=== PATIENT | female | born 1990 | race Caucasian/White ===

== ENCOUNTER → 2018-01-24 00:22 | Observation (INO) ==
[2018-01-23 21:37] LABS: Amphetamine Screen,Urine Negative ng/mL (Cutoff=1000); Barbiturate Screen,Urine Negative ng/mL (Cutoff=200); Benzodiazepines Screen,Urine Negative ng/mL (Cutoff=200); Cannabinoid Screen,Urine Negative ng/mL (Cutoff = 50); Cocaine Screen,Urine Negative ng/mL (Cutoff= 300); Opiate Screen,Urine Negative ng/mL (Cutoff=300); Phencyclidine Screen,Urine Negative ng/mL (Cutoff=25)
--- NOTE | 2018-01-23 22:39 | OB/GYN Progress Note ---
Date of Encounter: 01/24/18 Time of Encounter: 22:34 - Assessment and Plan (1) 35 weeks gestation of Current Visit: Yes Status: Acute Follow up with OB as scheduled Discharge home (2) Struck by dog, initial encounter Current Visit: Yes Status: Acute K-B stain - 0 (3) uterine contractions in third trimester, antepartum Current Visit: Yes Status: Acute Monitor x 2 hours for cervical change - no changes PTL precautions given Subjective - Subjective Principal diagnosis: Dog jumped on abdomen Interval history: Ms. Walker is a 27 year old at 35 weeks 2 days gestation who presents s /p dog jumping on her abdomen this evening. She reports her dog weighs 7-10 lbs. She denies ctx, lof, vb. She endorses good fm. 22:38 - update - pt reports contractions starting. Rates them 3/10. Antepartum ROS: new complaints, movement normal, contractions, no loss of fluid, no vaginal bleeding Objective - Vital Signs Vital Signs: Intake and Output 01/23/18 01/23/18 01/23/18 07:59 15:59 23:59 Other: Weight 75.568 kg Patient Weight 01/23/18 23:59 Weight 75.568 kg - Exam FHR: category 1 FHR comments: Baseline 130 Moderate variability Accelerations present 15x15 No decelerations FHR category I [place]- no activity initially and then contractions q 4-5 minutes and palpate moderate
== END | disposition home or self-care (01) ==
LOC: 1NENULAB
PROVIDERS: ADMIT Advanced Practice Midwife; ATTEND Advanced Practice Midwife

== ENCOUNTER 2018-02-20 05:56 | Inpatient (IN) ==
[2018-02-20] MEDS ORDERED: Ondansetron 4 MG/2 ML VIAL IVP PRN (06:11)
[2018-02-20] MEDS ORDERED: Naloxone 0.4 MG/ML INJ IVP PRN (06:11)
[2018-02-20] MEDS ORDERED: *HR* Nalbuphine 10 MG/ML AMPUL IVP PRN (06:11)
[2018-02-20] MEDS ORDERED: Famotidine 20 MG/2 ML VIAL IVP PRN (06:11)
[2018-02-20] MEDS ORDERED: Metoclopramide 10 MG/2 ML VIAL IVP PRN (06:11)
[2018-02-20] MEDS ORDERED: Ringers Solution, Lactated 1,000 ML ONE (06:24)
[2018-02-20 06:32] LABS: Basophils % 0.6 %; Eosinophils # 0.1 K/mcL (0.0-0.6); Eosinophils % 1.1 %; Hematocrit 34.5 % (35.3-44.9); Immature Granulocytes % 1.1 % (0-4); Lymphocytes # 1.3 K/mcL (0.6-4.6); Lymphocytes % 18.2 %; Mean Corpuscular HGB Conc 34.8 g/dL (31.6-35.5); Mean Corpuscular Hemoglobin 32.6 pg (28.0-33.3); Mean Corpuscular Volume 93.8 fL (83.0-100.0); Mean Platelet Volume 10.2 fL (9.4-12.4); Monocytes # 0.6 K/mcL (0.0-1.3); Monocytes % 8.3 %; Neutrophils # 5.1 K/mcL (1.6-8.9); Platelet Count 178 K/mcL (140-400); Red Blood Count 3.68 M/mcL (3.82-4.97); Red Cell Distribution Width 13.3 % (11.5-14.5); Segmented Neutrophils % 70.7 %
[2018-02-20] MEDS: Ringers Solution, Lactated 1,000 ML IVC SCH ×2 (06:32→13:55)
[2018-02-20 06:51] LABS: Amphetamine Screen,Urine Negative ng/mL (Cutoff=1000); Barbiturate Screen,Urine Negative ng/mL (Cutoff=200); Benzodiazepines Screen,Urine Negative ng/mL (Cutoff=200); Cannabinoid Screen,Urine Negative ng/mL (Cutoff = 50); Cocaine Screen,Urine Negative ng/mL (Cutoff= 300); Opiate Screen,Urine Negative ng/mL (Cutoff=300); Phencyclidine Screen,Urine Negative ng/mL (Cutoff=25)
[2018-02-20] MEDS ORDERED: miSOPROStol 25 MCG TABLET PO PRN (07:49)
--- NOTE | 2018-02-20 07:56 | OB/GYN History & Physical ---
Date of Encounter: 02/20/18 Time of Encounter: 07:50 Assessment and Plan (1) and not yet delivered in third trimester Current visit: Yes Status: Acute (2) 39 weeks gestation of Current visit: Yes Status: Acute (3) Gestational diabetes Current visit: Yes Status: Acute Qualifiers: Gestational diabetes mellitus control: diet-controlled Trimester: third trimester Qualified Code(s): O24.410 - Gestational diabetes mellitus in , diet controlled (4) Elective induction of labor planned Current visit: Yes Status: Acute Patient be induced with Cytotec 50 g by mouth once patient's having regular contractions she will be artificially ruptured with an epidural plan is to anticipate vaginal delivery History of Present Illness HPI: Ms. Walker is a 27 year old female 2 para 1 at 39-2/7 weeks who presented for induction of labor secondary term with favorable cervix. Patient was a gestational diabetic A1 well-controlled patient's NSTs have been reactive with no issues patient's cervix was 3-4 cm in the office and it was recommended when she got into the 39 week range that she be delivered she been having occasional contractions but nothing that she is concerned about no leaking of fluid having good movement patient is O-, GBS negative, rubella positive, Varicella positive. Past Med Surg Social Fam HX - Past Medical History Source: patient, old records reviewed Medical history: other Additional medical history: Gestational diabetes diet controlled Psychiatric history: no psych history - Past Surgical History Surgical History: no surgical history - Social History Smoking Status: Never smoker Smokeless Tobacco Status: No Alcohol use: none Drug use: none Occupational status: employed Current living situation: Home - Independent Activity Level: Independent ambulation Recent Out of Country Travel Within the Last 8 Weeks: No Exposure or Possible Exposure to Illness During Travel: No - Family History Mother Living Status: Still Living Hx Family Cardiac Disorders: Yes (hypertension) Hx Family Respiratory Disorders: No Hx Family Cancer: No Hx Family GI Disorders: No Hx Family Genitourinary Disorders: No Hx Family Endocrine Disorder: No Hx Family Musculoskeletal Disorders: No Hx Family Neuromuscular Disorders: No Hx Family Neurologic Disorders: No Hx Family HEENT Disorders: No Hx Family Autoimmune Disorders: No Hx Family Reproductive Disorders: No Hx Family Psychosocial Disorders: No Hx Family Medical Disorders: No - Additional Family History Additional family history: Family history noncontributory Obstetrical History - Pregnancies : 2 Para: 1 Term: 0 : 0 Ab's: 0 Livin Medications and Allergies Pnv No.122/Iron/Folic Acid [ Multi Tablet] 1 each PO DAILY 05/30/16 [ History] Ferrous Sulfate 1 tab PO DAILY 02/20/18 [History] 3 Allergy/AdvReac Type Severity Reaction Status Date / Time No Known Allergies Allergy Verified 02/20/18 06:20 Review of System OB All systems PM: reviewed and no additional remarkable complaints except as stated Exam - Constitutional Constitutional: well developed, well nourished, no acute distress, average body habitus - HEENT HEENT: EOMI, PERRL, Mucus Membranes Moist - Neck Neck exam: full ROM - Lungs Respiratory exam: CTAB - Cardiovascular Cardiovascular exam: RRR - Abdomen Abdomen: Present: bowel sounds normal, gravid ( heart tones 140s reactive occasional contractions seen) - Extremities Extremities exam: calf tenderness - Vagina Vagina: Present: normal moisture - Cervix Dilation: 4 Effacement: 80 Station: -1 Results Result Diagrams: 02/20/18 06:24 Abnormal lab results RBC 3.68 M/mcL (3.82-4.97) L 02/20/18 06:24 Hct 34.5 % (35.3-44.9) L 02/20/18 06:24 All other labs normal.
--- NOTE | 2018-02-20 11:19 | OB Labor Progress Note ---
Date of Encounter: 02/20/18 Time of Encounter: 11:15 Labor Progress Note - Subjective Subjective: Patient still not feeling too many contractions still having good movement - Cervix Cervix: 4/80/-1 AROM clear fluid noted - Heart Tones Heart Tones: heart tones 140s reactive - Morenci Morenci: Contractions every 2-5 minutes irregular - Plan Plan: If patient does not make any cervical change in the next 2 hours we will augment with Pitocin plan is to anticipate vaginal delivery
[2018-02-20] MEDS ORDERED: Oxytocin 20 units/ LR 1000 mL 20 UNIT/1,000 ML BAG IVC SCH ×2 (13:15→20:41)
[2018-02-20] MEDS ORDERED: *HR* Ropivacaine/PF 0.2% 20 ML VIAL EP ONE (13:17)
[2018-02-20] MEDS ORDERED: *HR* FentaNYL (PF) 100 MCG/2 ML VIAL EP ONE (13:17)
--- NOTE | 2018-02-20 13:17 | Anesthesia Evaluation PreOp ---
Date of Encounter: 02/20/18 Time of Encounter: 13:14 - Past History Planned Operation: annette Cardiac History: Denies any Significant Hx Pulmonary History: Denies Any Significant HX [employer] History: Denies Any Significant HX Other Medical History: Diabetes Type II, GERD Anesthesia History: No Prior Anesthetic Complications : Yes Test: Positive Alcohol Use: none Drug use: none Medications and Allergies Pnv No.122/Iron/Folic Acid [ Multi Tablet] 1 each PO DAILY 05/30/16 [ History] Ferrous Sulfate 1 tab PO DAILY 02/20/18 [History] 3 Allergy/AdvReac Type Severity Reaction Status Date / Time No Known Allergies Allergy Verified 02/20/18 06:20 - Meds/Allergy Pre-op Review Medications Reviewed: Yes Allergies Reviewed: Yes Beta Blockers on Current Med List: No Anesthesia Results - Labs 02/20/18 06:24 02/20/18 06:02 Anesthesia Exam 168/73 72 16 fht 119 Height: 5'3" Weight: 78 NPO (# of Hours): 4 Pain Scale: 6 Pain Scale Used: Numeric (1 - 10) - HEENT Pupil (Motor): Pupils equal Mallampati: II Teeth: Normal Oral Opening: Greater than 3 - [employer] LOC: Oriented [employer] Motor: Normal RUE, Normal LUE, Normal RLE, Normal LLE, Normal Face [employer] Sensory: Normal: RUE, LUE, RLE, LLE, Face - Cardiac Rhythm: Regular Murmur: None - Pulmonary Breath Sounds: bilateral Clear Respiratory Effort: Symmetrical Anesthesia Assess/Plan ASA Score: 2 Modified Bandar Scale for Level of Consciousness: Cooperative, oriented, and tranquil Anesthetic Plan: Regional Autologous Blood: No Monitoring Plan: Standard Monitors Recovery Plan: Other (risks discussed questions answered, consented)
[2018-02-20] MEDS ORDERED: Lidocaine -MPF 2% 5 ML VIAL ONE (13:19)
[2018-02-20] MEDS ORDERED: Epidural Premix (fent/bupiv) 110 ML EP ONE (13:45)
--- NOTE | 2018-02-20 13:54 | Anesthesia Procedures ---
Date of Encounter: 02/20/18 Time of Encounter: 13:52 Procedures: Anesthesia - Epidural/Spinal Patient ID/Chart reviewed: Yes Patient examined: Yes OB Eval: Gestational age: 39.2 OB Eval: : 2 OB Eval: Hx Para: 0 OB Eval: Dilated at (cm): 4 OB Eval: Contractions: Non-stressed pattern Consent Obtained: Yes Supplemental Oxygen: None/Room Air Site Prep: Aseptic Technique, 0.5% Chlorhexidine/Alcohol Patient position: upright Local Anesthetic: Lidocaine 1% Amount of Local Anesthetic used: 3 Touhy Needle Gauge: 18 Touhy Needle Depth (cm): 6 Catheter Depth at Skin (cm): 15 Test Dose (1.5% Lido + Epi): Volume given (mls): 3 Test Dose Result: Negative Loading Dose: Fentanyl (mcg): 100 Loading Dose: Other: ropivicaine 0.2% 10 Loading Dose Administered: Thru Touhy Needle Infusion Med: 0.125% Bupivacaine w/ 2 mcg/ml Fentanyl Infusion Rate (mls/hr): 15 (pcea 5 cc q30") Catheter Secured in Place: Tegaderm Interspace Used: L2-L3 Loss of Resistance (YESSI): Yes Blood: No CSF: No Paresthesia: No Procedure: aseptic, celestino well, effective, VSS Vitals + FHT's: 109/76 88 16 fht 123
--- NOTE | 2018-02-20 18:34 | OB/GYN Procedure Note ---
Delivery - Delivery Date: 02/20/18 Provider: Emigdio Joyce Intrapartum events: none Delivery induction: misoprostol Delivery augmentation: rupture of membranes, pitocin Delivery monitor: external FHT, external uterine Anesthesia: epidural Quantitated Blood Loss: 100 - (s) Infant A Infant Delivery Date: 02/20/18 Delivery Time: 17:37 Presentation: vertex Position: JANELLE Route of delivery: Gender: Female Viability: Viable Pounds: 6 Ounces: 4 Weight Gram: 2.84 kg at 1 minute: 8 at 5 mins: 8 Shoulder Dystocia: not encountered Specimens collected: cord blood Placenta: spontaneous Cord: nuchal cord (around the body) - Repair Episiotomy: none Laceration Description: Periurethral (bilaterally), Perineal - 2nd Degree - Complications Delivery complications: none Delivery comments: Patient is a 27-year-old 2 para 0010 at 39-2/7 weeks who presented for induction of labor secondary to term with favorable cervix. Patient was 4 cm on admission patient did receive 50 g of Cytotec by mouth once we started having contractions she was artificially ruptured for clear fluid she received an epidural soon after this then Pitocin was started patient progressed appropriately becoming complete and pushed for approximately 30 minutes delivering a viable female infant in right occiput anterior presentation at 1737. There was a nuchal cord around the body there was no meconium the was bulb suctioned on the abdomen. Apgars were 8 at 1 minute, 9 at 5 minute, infant weight was 6 lbs. 4 oz. Placenta was then delivered spontaneously with a three-vessel cord, assistant designer Dr. Joyce, anesthesia epidural, estimated blood loss 100 mL. She had bilateral periurethral lacerations repaired with 4-0 Vicryl in usual fashion and she had a second-degree perineal laceration repaired with 3-0 Monocryl in usual fashion. Cervix and vagina was visualized intact. She will be observed 2 hours before being taken to floor. - Disposition Mom disposition: stable in LDR [place] disposition: stable in LDR
[2018-02-20] MEDS ORDERED: Oxytocin 20 units/ LR 1000 mL 20 UNIT/1,000 ML BAG IVC ONE ×2 (20:01→20:41)
[2018-02-20] MEDS ORDERED: Rho Immune Globulin 1,500 UNIT SYRINGE IM PRN (20:41)
[2018-02-20] MEDS ORDERED: Measles/Mumps/Rubella Vacc 0.5 ML VIAL SQ PRN (20:41)
[2018-02-20] MEDS ORDERED: Acetaminophen 325 MG TABLET PO PRN (20:41)
[2018-02-20] MEDS ORDERED: *HR* HYDROcodone/Acet 5/325 mg TABLET PO PRN (20:41)
[2018-02-20] MEDS ORDERED: Ibuprofen 600 MG TABLET PO PRN (20:41)
[2018-02-21 05:51] LABS: Basophils % 0.2 %; Eosinophils # 0.1 K/mcL (0.0-0.6); Eosinophils % 0.6 %; Hematocrit 29.1 % (35.3-44.9); Hemoglobin 10.1 g/dL (11.5-15.4); Immature Granulocytes % 0.6 % (0-4); Lymphocytes # 1.1 K/mcL (0.6-4.6); Mean Corpuscular HGB Conc 34.7 g/dL (31.6-35.5); Mean Corpuscular Hemoglobin 32.6 pg (28.0-33.3); Mean Corpuscular Volume 93.9 fL (83.0-100.0); Mean Platelet Volume 10.3 fL (9.4-12.4); Monocytes # 0.8 K/mcL (0.0-1.3); Monocytes % 7.6 %; Neutrophils # 8.2 K/mcL (1.6-8.9); Platelet Count 143 K/mcL (140-400); Red Cell Distribution Width 13.1 % (11.5-14.5)
[2018-02-21] MEDS ORDERED: Prenatal Vit/FA 1 EACH TABLET PO SCH (09:00)
[2018-02-21] MEDS ORDERED: NON-FORMULARY MEDICATION 1 EACH EACH (Ferrous Sulfate 1 TAB) PO SCH (09:00)
[2018-02-21] MEDS ORDERED: [UNRECOGNIZED DRUG - REMARK] PO SCH (09:00)
--- NOTE | 2018-02-21 10:17 | Discharge Summary ---
Date of Encounter: 02/21/18 Time of Encounter: 10:19 - Discharge Diagnosis (1) Vaginal delivery Priority: Primary Status: Acute Comments: Pain well controlled with by mouth pain meds Tolerating regular diet Ambulating independently Voiding independently Passing flatus, no BM yet Lochia light Discharge home today (2) anemia Priority: Secondary Status: Acute Comments: Continue iron daily for 2 month (3) Breast feeding status of mother Priority: Secondary Status: Acute Comments: Community resources provided - Discharge Medications Prescriptions: Ibuprofen [Motrin] 600 mg PO Q6HR PRN #30 tablet PRN Reason: Cramping Docusate [Colace] 100 mg PO BID #60 capsule Ferrous Sulfate 325 mg PO DAILY #30 tablet Home Medications: Pnv No.122/Iron/Folic Acid [ Multi Tablet] 1 each PO DAILY 05/30/16 [ History] Acetaminophen [Tylenol] 650 mg PO Q6HR PRN tablet 02/21/18 [Rx] Docusate [Colace] 100 mg PO BID #60 capsule 02/21/18 [Rx] Ferrous Sulfate 325 mg PO DAILY #30 tablet 02/21/18 [Rx] Ibuprofen [Motrin] 600 mg PO Q6HR PRN #30 tablet 02/21/18 [Rx] Allergies/Adverse Reactions: 3 Allergy/AdvReac Type Severity Reaction Status Date / Time No Known Allergies Allergy Verified 02/20/18 06:20 Data Procedures and tests throughout hospitalization: Laboratory Tests 02/20/18 02/20/18 02/20/18 06:02 06:24 06:24 WBC 7.2 RBC 3.68 L Hgb 12.0 Hct 34.5 L MCV 93.8 MCH 32.6 MCHC 34.8 RDW 13.3 Plt Count 178 MPV 10.2 Immature Gran % 1.1 Seg Neutrophils % 70.7 Lymphocytes % 18.2 Monocytes % 8.3 Eosinophils % 1.1 Basophils % 0.6 Neutrophils # 5.1 Lymphocytes # 1.3 Monocytes # 0.6 Eosinophils # 0.1 Basophils # 0.0 Glucose 97 Urine Opiates Screen Negative Ur Barbiturates Screen Negative Ur Phencyclidine Scrn Negative Ur Amphetamines Screen Negative U Benzodiazepines Scrn Negative Urine Cocaine Screen Negative U Marijuana (THC) Screen Negative Ur Drug Screen Interp See Below 02/21/18 05:16 WBC 10.3 RBC 3.10 L Hgb 10.1 L D Hct 29.1 L MCV 93.9 MCH 32.6 MCHC 34.7 RDW 13.1 Plt Count 143 MPV 10.3 Immature Gran % 0.6 Seg Neutrophils % 80.0 Lymphocytes % 11.0 Monocytes % 7.6 Eosinophils % 0.6 Basophils % 0.2 Neutrophils # 8.2 Lymphocytes # 1.1 Monocytes # 0.8 Eosinophils # 0.1 Basophils # 0.0 Glucose Urine Opiates Screen Ur Barbiturates Screen Ur Phencyclidine Scrn Ur Amphetamines Screen U Benzodiazepines Scrn Urine Cocaine Screen U Marijuana (THC) Screen Ur Drug Screen Interp Labs on day of discharge: Labs from last 24 hours 02/21/18 05:16 WBC 10.3 RBC 3.10 L Hgb 10.1 L D Hct 29.1 L MCV 93.9 MCH 32.6 MCHC 34.7 RDW 13.1 Plt Count 143 MPV 10.3 Immature Gran % 0.6 Seg Neutrophils % 80.0 Lymphocytes % 11.0 Monocytes % 7.6 Eosinophils % 0.6 Basophils % 0.2 Neutrophils # 8.2 Lymphocytes # 1.1 Monocytes # 0.8 Eosinophils # 0.1 Basophils # 0.0 Date of admission: 02/20/18 05:56 Primary care physician: Last Cain MD Consults: 02/20/18 20:41 Consult to Director Of Quantitative Research [CONS] Routine Comment: Vaginal delivery, consult needed Discharging clinician: Mary Isidro Anticipated date of discharge: 02/21/18 - Patient Status Disposition: Home, Self-Care Condition: Good Functional capacity at discharge: independent ambulation Overall status at discharge: patient is progressing back to baseline - Discharge Instructions Follow Up With: Last Cain MD [Primary Care Provider] - Rica Sung DO [Partnered Physician] - - Diet and Activity Activity: increase activity as tolerated Diet: regular diet Hospital Course Reason for admission: induction of labor, IUP at term Delivery: Episiotomy: none Laceration: 2nd degree Other procedures: none complications: none Discharge diagnosis: IUP at term delivered baby: female Time Attestation: Total time spent providing and/or coordinating discharge services: Time Spent: Less than 30 minutes Exam - Constitutional Vitals: Temp Pulse Resp BP Pulse Ox 98.1 F 86 18 109/71 96 02/21/18 08:17 02/21/18 08:17 02/21/18 08:17 02/21/18 08:17 02/21/18 08:17 General appearance IM: A&O X 3 - Respiratory Respiratory exam: Present: CTAB - Cardiovascular Cardiovascular exam IM: Present: RRR, +S1, +S2 - GI/Abdominal GI/Abdominal exam IM: normal bowel sounds, no peritoneal signs - Rectal Rectal exam: deferred - Uterine Tone: Firm Uterus Position: At Umbilicus, Midline - Extremities Exam Extremities exam IM: Present: normal capillary refill, normal inspection, radial pulses palpable and symmetrical - Neurological Exam Neurological exam: alert, CN II-XII intact, normal gait, oriented X3, reflexes normal, no focal deficits, strengths equal and symetr throughout - Psychiatric Additional comments: Patient denies history of depression and anxiety. Signs and symptoms of depression discussed with patient and family and they verbalized understanding of when to seek help.
[2018-02-21 18:26] VITALS: BP 111/74
== END 2018-02-21 20:00 | disposition home or self-care (01) | DRG 775 ==
LOC: 1NENULAB 05:56 → 1NENUOBS 20:40
PROVIDERS: ADMIT Obstetrics & Gynecology; ATTEND Obstetrics & Gynecology